=== PATIENT | female | born 1975 | race Two or more races ===

== ENCOUNTER 2025-05-26 11:15 | Day surgery (SDC) | payer MEDICAID ==
[2025-05-23 10:27] LABS: Hematocrit 38.8 % (36.0-46.0); Hemoglobin 13.6 g/dL (12.2-16.2); Mean Corpuscular Hemoglobin 33.6 pg (28.0-32.0); Mean Corpuscular Volume 95.8 fL (80.0-100.0); Nucleated Red Blood Cells % 0.1 %
[2025-05-23 10:43] LABS: INR 0.98 (0.9-1.15); Partial Thromboplastin Time 27.6 SEC (24.5-34.5); Prothrombin Time 10.4 sec (9.3-11.8)
[2025-05-23 10:57] LABS: Urine Amorphous Crystal FEW /hpf (None Seen); Urine Protein, UAD Negative (Negative)
[2025-05-23 10:59] LABS: Alanine Aminotransferase 12 U/L (7-40); Alkaline Phosphatase 93 U/L (46-116); Anion Gap 10 (5-15); BUN/Creatinine Ratio 13.0 (10.0-20.0); Blood Urea Nitrogen 10 mg/dL (9-23); Calcium 9.9 mg/dL (8.7-10.4); Carbon Dioxide 25 mmol/L (20-31); Chloride 105 mmol/L (98-107); Potassium 4.1 mmol/L (3.5-5.1); Sodium 140 mmol/L (136-145); Total Protein 8.0 g/dL (5.7-8.2)
[2025-05-23 11:00] LABS: Albumin 4.8 g/dL (3.2-4.8); Bilirubin, Total 0.6 mg/dL (0.2-1.0)
[2025-05-23 11:02] LABS: Glucose 72 mg/dL (74-106)
[~2025-05-26] VITALS: Ht 154.9 cm; Wt 56.7 kg
[2025-05-26] MEDS ORDERED: ceFAZolin 2 GM/D5W50ml 50 ML IV ONE (11:36)
[2025-05-26] MEDS ORDERED: LIDOCAINE 1% HCL (LOCAL ANESTH.) INJ 20ML MDV ONE (12:46)
[2025-05-26] MEDS ORDERED: PROPOFOL 10 MG/ML 20 ML IV ONE (13:04)
[2025-05-26] MEDS ORDERED: fentaNYL CITRATE 100 MCG/2 ML VL ONE (13:04)
[2025-05-26] MEDS ORDERED: ONDANSETRON HCL 4 MG/2 ML VIAL ONE ×2 (13:21→15:38)
[2025-05-26 13:29] VITALS: PULSE 81; RESP 20; TEMP 97; O2SAT 100
--- NOTE | 2025-05-26 13:35 | DVHOP2 ---
Operative Report - 2 Report Details Date: 05/26/25 Preop Diagnosis: 1. Left foot bunion 2. Left foot metatarsalgia 3. Left foot pain Postop Diagnosis: Same as preop Surgeon: Juana Wagoner MD Anesthesiologist: See anesthesia Anesthesia: Mac Implant: 6 2 K-wire Consent: The patient was informed of the risks and benefits of the procedure. These include but are not limited to complications of anesthesia, postoperative infection, incomplete relief of symptoms, recurrence of symptoms, damage to blood vessels, nerves and tendons, deep venous thrombosis, pulmonary embolism and possible need for repeat surgery in the future. Complications: None Estimated Blood Loss: Minimal Fluids: See anesthesia Findings: Consistent with the diagnosis Indications for Surgery: Worsening left foot pain Name of Procedure Performed 1. Left foot MIS bunion (15673) 2. Left foot second osmel osteotomy (09231) Procedure Details Procedure Details: PRE-PROCEDURE INFORMATION: In the pre-op holding area, the extremity to be operated on was clearly marked and the patient verified correct laterality of the marking. The patient was transferred to the OR table and placed in a supine position. A timeout was performed in which identification of the correct patient, procedure, location, and materials was done. The left foot and leg were prepped and draped in normal sterile fashion. DESCRIPTION OF PROCEDURE: Attention was directed to the left 1st metatarsophalangeal joint where a stab incision was made at the neck of the 1st metatarsal. Care was taken to avoid damage the neurovascular and tendinous structures. Using intraoperative fluoroscopy and an MIS per, an osteotomy was then made at the neck of the 1st metatarsal. The metatarsal head was then shifted into position aligning the sesamoid bones over the fragment. Using a 6 2 K-wire, the wire was then driven down the shaft of the 1st metatarsal to hold the head in place until the osteotomy has healed. Attention was directed to the left 2nd metatarsal head where a stab incision was made. The incision was deepened through blunt and sharp dissection. Care was taken to avoid damage to neurovascular structures throughout dissection. Incision was carried to the level of the 2nd metatarsal head or on fluoroscopy as well as preoperative x-rays, it was noted there was significant plantar flexion of the metatarsal head. Using an MIS bur, the an osteotomy was performed across the neck of the metatarsal head. The metatarsal head was then able to float. All surgical wounds were irrigated copiously with saline and closed in layers with the aforementioned suture material. A dry sterile dressing was placed on the surgical extremity. The patient was placed in a postop shoe POSTOPERATIVE INFORMATION: The patient tolerated the above noted procedure and anesthesia well and was transferred to the PACU with vital signs stable, and vascular status intact with capillary refill intact to all digits. Postoperative instructions reviewed in detail with the patient with written instructions provided. Patient will return to clinic in approximately 10-14 days for first postoperative visit. Patient has the number of the clinic and was instructed to call prior to that time should any problems, questions, or concerns arise. Condition Good Disposition Home Visit Coding Podiatry Date of Service if different f: May 26, 2025 Billing Provider: JUANA WAGONER DPM Podiatry Common Visit Codes: PROCEDURE ONLY JUANA WAGONER DPM May 26, 2025 13:35
[2025-05-26 13:45] VITALS: PULSE 80; RESP 18; O2SAT 97
[2025-05-26] MEDS ORDERED: HYDROmorphone HCL 2 MG/ML VL/or syr ONE (14:14)
[2025-05-26] MEDS ORDERED: HYDROmorphone HCL 2 MG/ML VL/or syr IV PRN (14:15)
[2025-05-26] MEDS ORDERED: ACETAMINOPHEN IV 1000 MG/100ML (10MG/ML) IV PRN (14:15)
[2025-05-26] MEDS: HYDROmorphone HCL 2 MG/ML VL/or syr IV PRN (14:15)
[2025-05-26] MEDS ORDERED: ACETAMINOPHEN IV 100 ML IV ONE (14:59)
[2025-05-26] MEDS: ACETAMINOPHEN IV 1000 MG/100ML (10MG/ML) IV ONE (15:01)
[2025-05-26] MEDS: ONDANSETRON HCL 4 MG/2 ML VIAL IV PRN (15:35)
[2025-05-26 16:15] VITALS: BP 117/58; PULSE 64; RESP 17; O2SAT 98
== END 2025-05-26 16:35 | disposition home or self-care (01) ==
LOC: SUR 11:15
PROVIDERS: ATTEND Podiatrist
DX: M21.612 Bunion of left foot (principal); M77.42 Metatarsalgia, left foot; K21.9 Gastro-esophageal reflux disease without esophagitis; Z98.890 Other specified postprocedural states; Z79.899 Other long term (current) drug therapy; Z86.2 Personal history of diseases of the blood and blood-forming organs and certain disorders involving the immune mechanism
CPT/HCPCS: 28296; 28308; 36415; 80053; 81001; 81025; 85025; 85610; 85730; C1713; J0690; J1100; J1171; J2003; J2405; J2704; J3010; L3260; J0131